=== PATIENT | female | born 1955 | race Caucasian/White ===

== ENCOUNTER → 2018-09-10 07:50 | Outpatient (CLI) | payer BC, SELFPAY ==
[2018-09-10 08:45] LABS: Hematocrit 38.2 % (36-46); Hemoglobin 12.9 g/dL (12.0-16.0); Mean Corpuscular HGB Conc 33.8 % (30-36); Mean Corpuscular Hemoglobin 31.1 PG (26-34); Platelet Count 161 X10^3/uL (150-400); Red Blood Cell Count 4.15 X10^6/uL (4.0-5.2); Red Cell Distribution Width 12.5 % (11.6-14.8); White Blood Cell Count 3.9 X10^3/uL (4.5-11.0)
[2018-09-10 08:57] LABS: Alanine Aminotransferase 19 IU/L (9-52); Albumin 4.7 g/dL (3.5-5.0); Albumin Globulin Ratio 1.4 (1.0-2.8); Alkaline Phosphatase 50 U/L (38-126); Amylase 83 U/L (30-110); Aspartate Aminotransferase 25 IU/L (14-36); BUN Creatinine Ratio 16.7 (6-22); Bilirubin Total 0.5 mg/dL (0.2-1.3); Blood Urea Nitrogen 15 mg/dL (7-17); Calcium 9.5 mg/dL (8.4-10.2); Carbon Dioxide 28 mmol/L (22-32); Chloride 102 mmol/L (98-107); Cholesterol 198 mg/dL (140-199); Estimated Glomerular Filt Rate > 60.0 mL/min (>60); Globulin 3.3 g/dL (1.7-4.1); Glucose 93 mg/dL (80-110); HDL Cholesterol 63 mg/dL (40-60); HEMOLYSIS < 15 (0-50); LDL Cholesterol Calculated 121 mg/dL (<100); Sodium 138 mmol/L (137-145); Triglycerides 72 mg/dL (35-150)
[2018-09-10 09:02] LABS: Potassium 5.5 mmol/L (3.4-5.1)
[2018-09-10 09:47] LABS: Neutrophils Absolute Manual 2340 /uL (3000-5900); RBC Morphology Normal Morphology; Thyroid Stimulating Hormone 2.91 uIU/mL (0.47-4.68); Total Cells Counted 100
== END ==
PROVIDERS: PCP Family Medicine; Visit Provider Family Medicine
DX: R10.9 Unspecified abdominal pain (principal)
CPT/HCPCS: 36415; 80053; 80061; 82150; 83013; 84443; 85025

== ENCOUNTER → 2018-09-12 08:58 | Outpatient (CLI) | payer BC, SELFPAY ==
--- NOTE | 2018-09-12 09:00 | DI.US.S_ITS ---
PROCEDURE: US ABDOMEN COMPLETE INDICATIONS: abd pain bloating TECHNIQUE: Real-time scanning was performed of the abdominal and retroperitoneal organs, with image documentation. COMPARISON: [facility], , CT ABDOMEN/PELVIS WITH CONTRAST, 03/19/2006, 9:33. FINDINGS: Liver: Liver is normal in size and homogeneous in echotexture. Gallbladder: No findings of gallstones or sludge are seen. The gallbladder wall is not thickened, measuring 3 mm or less. No specific pericholecystic fluid is seen. The sonographic Pandya sign is negative. Biliary ducts: Intrahepatic bile ducts are non-dilated. Extrahepatic bile duct caliber measures 2-3 mm. Normal is 6-7 mm or less in diameter, or 10 mm or less post-cholecystectomy. Pancreas: Visualized portions of the pancreas are sonographically normal. Spleen: Spleen is normal in size and homogeneous in echotexture. Kidneys: Kidneys are normal in size and echotexture. Right kidney measures 8.4 cm long; left kidney measures 9.7 cm long. No hydronephrosis or nephrolithiasis. No solid masses. The renal cortex measures within normal limits for thickness. Aorta: Visualized aorta is normal in caliber at less than 3 cm. Iliacs: Proximal common iliac arteries are normal in caliber at less than 2.5 cm. IVC: Intrahepatic inferior vena cava is patent. Miscellaneous: No free abdominal fluid. IMPRESSION: Normal ultrasound. The gallbladder demonstrates a normal sonographic appearance. No biliary dilatation is seen. Dictated by: Ross Machuca M.D. on 09/12/2018 at 10:38 Approved by: Ross Machuca M.D. on 09/12/2018 at 10:39
--- NOTE | 2018-09-12 09:00 | DI.RAD.S_ITS ---
PROCEDURE: FL UPPER GI W AIR INDICATIONS: abd pain bloating COMPARISON: None. FINDINGS: Upper GI series was performed. Scheduled small bowel follow-through was declined by the patient. Reportedly, this was due to difficulties with p.o. intake. 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 No suspicious abdominal calcifications. Visualized solid organ contours appear normal. Bony structures appear unremarkable. Esophagus: Esophageal mucosa is grossly unremarkable on air-contrast views. On single-contrast views, there is decreased esophageal peristalsis. Delayed esophageal clearance. No strictures, extrinsic mass effects, or diverticula. No hiatal hernia or elicited gastroesophageal reflux. Stomach: The stomach is normally distensible, with normal rugal fold thickness. No mucosal masses or ulcers. Pylorus and duodenal bulb appear normal in morphology. Duodenal folds are normal in thickness as well. IMPRESSION: Esophageal dysmotility. Dictated by: Austin Lorenz M.D. on 09/12/2018 at 12:17 Approved by: Austin Lorenz M.D. on 09/12/2018 at 12:20
== END ==
PROVIDERS: PCP Family Medicine; Visit Provider Family Medicine
DX: R10.9 Unspecified abdominal pain (principal); R14.0 Abdominal distension (gaseous); K22.4 Dyskinesia of esophagus
CPT/HCPCS: 74247; 76700

== ENCOUNTER → 2018-09-17 08:52 | Outpatient (CLI) | payer BC, SELFPAY ==
[2018-09-17 09:56] LABS: BUN Creatinine Ratio 11.1 (6-22); Blood Urea Nitrogen 10 mg/dL (7-17); Calcium 9.3 mg/dL (8.4-10.2); Carbon Dioxide 27 mmol/L (22-32); Chloride 103 mmol/L (98-107); Estimated Glomerular Filt Rate > 60.0 mL/min (>60); Glucose 54 mg/dL (80-110); HEMOLYSIS < 15 (0-50); Potassium 4.2 mmol/L (3.4-5.1); Sodium 140 mmol/L (137-145)
== END ==
PROVIDERS: PCP Family Medicine; Visit Provider Family Medicine
DX: E87.5 Hyperkalemia (principal)
CPT/HCPCS: 36415; 80048

== ENCOUNTER → 2018-11-14 08:42 | Outpatient (CLI) | payer BC, SELFPAY ==
[2018-11-14 09:57] LABS: Hematocrit 37.5 % (36-46); Hemoglobin 12.5 g/dL (12.0-16.0); Mean Corpuscular HGB Conc 33.3 % (30-36); Platelet Count 158 X10^3/uL (150-400); Red Blood Cell Count 4.04 X10^6/uL (4.0-5.2); Red Cell Distribution Width 12.7 % (11.6-14.8); White Blood Cell Count 4.7 X10^3/uL (4.5-11.0)
[2018-11-14 10:12] LABS: Neutrophils Absolute Manual 2632 /uL (3000-5900); Total Cells Counted 100
[2018-11-14 10:24] LABS: RBC Morphology Normal Morphology
== END ==
PROVIDERS: PCP Family Medicine; Visit Provider Family Medicine
DX: R63.4 Abnormal weight loss (principal)
CPT/HCPCS: 85025

== ENCOUNTER 2018-12-14 10:14 | Day surgery (SDC) | payer BC, SELFPAY ==
[2018-12-14] VITALS (7 sets, daily range): BP systolic 88–106; BP diastolic 55–67; PULSE 55–63; RESP 12–19; TEMP 35.8–37.1; O2SAT 95–100; BMI 18.6
--- NOTE | 2018-12-14 | PATH_ITS ---
[facility] Accession Number: [id number] . 01 Material submitted: . gastrointestinal site - GASTRIC POLYP . 02 Diagnosis: Stomach, Polyp, Biopsy: Fundic gland polyp. No evidence of Helicobacter on H/E stain. Negative for intestinal metaplasia. Negative for dysplasia and malignancy. [facility]/12/16/2018 . 02 Electronically signed: . Gladys Adams MD, Pathologist NPI- [id number] . 01 Gross description: . GASTRIC POLYP: Received in formalin are 2 fragment(s) of pyle, soft tissue measuring 0.1 x 0.1 x 0.1 cm to 0.2 x 0.1 x 0.1 cm which is entirely submitted and submitted entirely in 1 cassette(s) /DMC /DMC . 02 Pathologist provided ICD-10: R10.9 . 02 CPT . 338405 Performed at: 01 [facility] [address] [facility] [place], [place], [place] [id number] MD Jeff Hopkins MD Phone: [phone] Performed at: 02 [facility] [address] [place], [place] [id number] MD Gladys Adams MD Phone: [phone]
[2018-12-14] MEDS: SODIUM CHLORIDE 0.9% 1,000 ML 70 ML IV (10:43)
--- NOTE | 2018-12-14 10:55 | PM.HP.1 ---
History of Present Illness Date Patient Seen: 12/14/18 Time Patient Seen: 10:55 Chief complaint: [id number] Narrative: Patient is a very pleasant 63-year-old female who presented for further evaluation of acid reflux. Patient was last seen in the office on November 09, 2018. She denies any changes to her medical history or surgical history since that time. She has restarted her omeprazole b.i.d. since that time and has had significant improvement of her symptoms. She has started to gain back a couple of lb. Patient History Medical History GERD (gastroesophageal reflux disease) (Chronic) Chicken pox (Resolved) Measles (Resolved) Mumps (Resolved) Surgical History Anesthesia (Resolved) Status post delivery Status post hernia repair Family History Brother Age: 64 Hypertension High cholesterol Father CVA (cerebral infarction) Psoriasis Mother Age: 91 Pacemaker Heart disease Social History marital status: household members: family Smoking Status: Never smoker alcohol intake: current (1-2 A DAY ) substance use type: does not use Family & Social History Family History Brother Age: 64 Hypertension High cholesterol Father CVA (cerebral infarction) Psoriasis Mother Age: 91 Pacemaker Heart disease Social History: household members family Tobacco & Substance use: Smoking Status Never smoker alcohol intake current Meds Home Medications Medication Instructions Recorded Confirmed Type calcium carbonate 600 mg calcium 600 mg PO DAILY tab 11/10/17 12/14/18 History (1,500 mg) tablet multivitamin tablet 1 tab PO DAILY 11/10/17 11/21/18 History pantoprazole 40 mg tablet,delayed 40 mg PO BID #60 tab 09/28/18 12/14/18 Rx release magnesium 250 mg tablet 250 mg PO DAILY 11/21/18 12/14/18 History Al hyd-Mg tr-alg ac-sod bicarb 4 tab PO DAILY 12/14/18 12/14/18 History [Gaviscon] B.breve-L.acid-L.rham-S.thermo 2 tab PO DAILY 12/14/18 12/14/18 History [Probiotic] Allergies Allergy/AdvReac Type Severity Reaction Status Date / Time No Known Drug Allergies Allergy Verified 12/14/18 10:36 Review of Systems Review of Systems All systems reviewed & are unremarkable except as noted in HPI and below Exam Vital Signs (past 8 hours): - 12/14/18 10:39 Temperature 96.5 F L Pulse Rate 55 L Respiratory Rate 15 Blood Pressure 106/65 Pulse Oximetry 100 Oxygen Delivery Method Room Air Const General: cooperative, healthy appearing, comfortable, well developed and well groomed Resp Effort & Inspection: normal respiratory effort Auscultation: clear to auscultation bilaterally Cardio Rate: regular rate Rhythm: regular rhythm Heart Sounds: S1 normal and S2 normal GI Palpation: soft and no hepatosplenomegaly Auscultation: normal bowel sounds Assessment & Plan Assessment & Plan narrative: 1. Esophageal reflux 2. Early satiety 3. Unintentional weight loss 4. Esophageal dysmotility on esophagram Regarding the procedure(s), the risks and potential complications, benefits, and alternatives (including not doing the procedure) were discussed with the patient. The risks include but are not limited to bleeding, splenic injury, infection, perforation which may require surgical intervention, missed lesions, and adverse reactions to sedative medicines. After a question and answer period, the patient agreed to proceed with the procedure(s) and gives informed consent.
--- NOTE | 2018-12-14 11:07 | SUR.OPER ---
GLASSES TO PACU IN LABELED BAG WITH PATIENT
[2018-12-14] MEDS: MIDAZOLAM 5 MG/5 ML VIAL IV (11:10)
[2018-12-14] MEDS: fentaNYL 250 MCG/5 ML INJ IV (11:11)
--- NOTE | 2018-12-14 11:15 | PM.OP.ENDO ---
Operative Date/Time/Diagnoses Date of procedure: 12/14/18 Time of procedure: 11:04 Procedure Notes Procedure in detail: Surgeon: Ashley Levin DO Procedure: Esophagogastroduodenoscopy with biopsy Preoperative diagnosis: Gastroesophageal reflux, early satiety, unintentional weight loss, esophageal dysmotility Postoperative diagnosis: Gastric polyps otherwise unremarkable esophagus, stomach, and small intestine Medications: Conscious sedation using 3 mg IV of Midazolam and 50 mcg IV of Fentanyl Preanesthesia Assessment An H and P was performed/updated and the Px?s ASA class is 1. The procedure was discussed in detail with the patient. The potential risks and complications including infection, bleeding, missed lesions, perforation, need for surgery in case of perforation, prolonged hospital stay, and were explained. A brief question and answer period was allotted and once all questions were answered, informed consent was obtained. The patient was brought back to the procedure room and placed on standard monitoring. The patient?s vital signs were monitored continuously throughout the entire procedure. Prior to starting, a timeout was performed to confirm the patient?s identity, allergies, medications, and procedure. Procedure in detail The patient was placed in left lateral decubitus position and a bite block was inserted. The tip of the upper endoscope was placed into the mouth and advanced without difficulty under direct visualization into the esophagus. Esophagus: Normal appearing esophagus, negative for stricture or mass Stomach: Few small gastric polyps, biopsied. No evidence of gastritis or hiatal hernia Duodenum: Normal-appearing small duodenum including the duodenal bulb, 1st and 2nd portions. The patient tolerated the procedure well and will be brought back to the recovery area to be discharged once criteria are met. The total physician intraservice time was 10min. Complications There were no complications and estimated blood loss was minimal. Recommendations: Resume previous diet Continue outPx medications Follow up pathology results Office follow up if persistent symptoms An emergency contact number was given to the patient for any complications related to the procedure
== END 2018-12-14 12:21 | disposition home or self-care (01) ==
PROVIDERS: PCP Family Medicine; Visit Provider Student in an Organized Health Care Education/Training Program
PROC: 0DJ08ZZ Inspection of Upper Intestinal Tract, Via Natural or Artificial Opening Endoscopic (ICD-10-PCS; CPT 43235; principal; 2018-12-14 11:30)
DX: K21.9 Gastro-esophageal reflux disease without esophagitis (principal); R68.81 Early satiety; K22.4 Dyskinesia of esophagus; R63.4 Abnormal weight loss; K31.7 Polyp of stomach and duodenum
CPT/HCPCS: 43239; J2250; J3010

== ENCOUNTER 2019-11-29 08:23 | Emergency (ER) | payer BC, SELFPAY ==
[2019-11-29 08:25] VITALS: BP 119/70; PULSE 65; RESP 16; TEMP 36.9; O2SAT 100
--- NOTE | 2019-11-29 09:14 | ED_ITS ---
HPI - Headache General Chief Complaint: Headache Stated Complaint: Dizziness,Headaches, nausea on and off Time Seen by Provider: 11/29/19 08:43 Source: patient Mode of arrival: Ambulatory Limitations: no limitations History of Present Illness HPI Narrative: 64-year-old female here for evaluation of approximately 10 days off and on headaches associated with nausea and also a dizziness sensation. She states that all of her symptoms started approximately 10 days ago. It did start with a headache and nausea. Was not a sudden onset. Lasted several hours. She took some Tylenol which seemed to help her symptoms. The next couple days she had no symptoms. The headache the nausea returned again after that. Again she took Tylenol which did improve the symptoms. She then went another couple days without any symptoms and now today and for the past couple days she has described a lightheadedness sensation. Is not a room spinning sensation. She thinks she can overcome this sensation by doing other tasks. She has not fallen. Has a very slight headache today but she states that the lightheadedness is not associated with the headache. No chest pain or palpitations. Has not tried anything except for the Tylenol for any of these symptoms. Has never had anything like this in the past. Does have tinnitus however she states that it is not any worse than normal. No sinus congestion or sore throat. No vision changes. No new numbness or tingling in her upper extremities. She states that the lightheadedness is a sensation that she feels like she wants to fall to her left. Related Data Home Medications Medication Instructions Recorded Confirmed calcium carbonate 600 mg calcium 600 mg PO DAILY tab 11/10/17 11/29/19 (1,500 mg) tablet multivitamin 1 tab PO DAILY 11/10/17 11/29/19 Allergies Allergy/AdvReac Type Severity Reaction Status Date / Time No Known Drug Allergies Allergy Verified 11/29/19 08:44 Review of Systems Constitutional Constitutional: Denies chills, Denies fatigue, Denies fever(s), Denies frequent falls and Reports headache(s) Eyes Eyes: Denies blurry vision, Denies change in vision and Denies diplopia ENT Ears, Nose, Mouth, and Throat: Denies vertigo, Denies dizziness, Reports headache(s), Denies hearing loss, Denies nasal congestion, Reports d isequilibrium, Denies sinus pain and Denies sinus pressure Cardiovascular Cardiovascular: Denies chest pain, Denies rapid heart rate, Denies irregular heart rhythm, Reports lightheadedness and Denies dyspnea Respiratory Respiratory: Denies cough and Denies dyspnea Gastrointestinal Gastrointestinal: Denies abdominal pain, Denies change in bowel habits, Denies diarrhea and Reports nausea Genitourinary Genitourinary: Denies dysuria Genitourinary: Denies dysuria Musculoskeletal Musculoskeletal: Denies abnormal gait, Denies arthralgias, Denies back pain, Denies myalgias, Denies numbness and Denies tingling Integumentary/Breasts Skin/Breast: Denies lesions and Denies rash Neurologic Neurologic: Denies abnormal speech, Denies abnormal gait, Denies behavioral changes, Denies confusion, Denies vertigo, Denies dizziness, Denies frequent falls, Reports headache(s), Denies lack of coordination, Denies localized weakness, Denies numbness, Denies tingling and Reports disequilibrium Psychiatric Psychiatric: Denies anxiety, Denies behavioral changes and Denies confusion Endocrine Endocrine: Denies fatigue Hematologic/Lymphatic Hematologic/Lymphatic: Denies easy bleeding and Denies easy bruising Allergic/Immunologic Allergic/Immunologic: Denies urticaria Patient History Medical History Chicken pox (Resolved) GERD (gastroesophageal reflux disease) (Chronic) Measles (Resolved) Mumps (Resolved) Surgical History Anesthesia (Resolved) Status post delivery Status post hernia repair Family History Brother Age: 65 Hypertension High cholesterol Father CVA (cerebral infarction) Psoriasis Mother Age: 92 Pacemaker Heart disease Social History marital status: household members: family Smoking Status: Never smoker alcohol intake: current (1-2 A DAY ) substance use type: does not use Smoking Status: Never smoker alcohol intake frequency: 0-2 drinks per day Substance Use Type: does not use Exam Initial Vital Signs Initial Vital Signs: Vital Signs Temperature 98.5 F 11/29/19 08:25 Pulse Rate 65 11/29/19 08:25 Respiratory Rate 16 11/29/19 08:25 Blood Pressure 119/70 11/29/19 08:25 Pulse Oximetry 100 11/29/19 08:25 Const General: cooperative, healthy appearing, comfortable, well developed, well groomed and No acute distress Limitations: mental status not altered HENAL Head: normal to inspection and normocephalic Eyes Eyelids: eyelids normal Pupils: PERRL EOM: EOM intact bilaterally and No nystagmus Resp Effort & Inspection: normal respiratory effort Auscultation: clear to auscultation bilaterally Cardio Rate: regular rate Rhythm: regular rhythm GI Inspection: non-distended Palpation: soft, No firm and No tender Back/Spine/Pelvis Back: normal to inspection Skin Lesions: no lesions Rashes: no rashes Neuro General: patient alert, patient awake, patient oriented x3, tone normal, moves all extremities, normal light touch, pain and propioception, no meningeal signs, no focal motor deficits and not confused Cranial Nerves: CN's II-XI intact bilaterally, PERRL, EOM intact bilaterally, facial strength normal, tongue midline, hearing normal and No nystagmus Cognition: normal cognition Speech: speech normal Motor: muscle tone normal throughout Sensory Exam: no sensory deficits noted Coordination: [id number] test normal Extrem General: normal to inspection and capillary refill normal Psych Appearance: grossly normal and well kempt Scores GCS [place] coma scale eye opening: Spontaneous Marcello coma scale verbal response: Orientated [place] coma scale motor response: Obey commands Marcello coma scale total score: 15 NIH Stroke Scale Level of Conciousness: Alert, keenly responsive Ask month/age: Answers both questions correctly. Open/close eyes, close hand: Performs both tasks correctly Best gaze horizontal: Normal Visual choudhury: No visual loss Facial palsy: Normal symetrical movement Left arm drift: No drift for full 10 sec Right arm drift: No drift for full 10 sec Left leg drift: No drift for full 10 sec Right leg drift: No drift for full 10 sec Limb ataxia: Absent Sensory on face/arms/legs: Normal, no sensory loss Best language: No aphasia, normal Dysarthria: Normal Extinction or inattention: No abnormality Total NIH Stroke scale score: 0 Course Orders Ordered: ED Orders 11/29/19 08:39 Basic Metabolic Panel Stat Complete Blood Count AUTO DIFF Stat Thyroid Stimulating Hormone Stat 11/29/19 09:16 CT head/brain wo con Stat EKG-12 Lead Stat Vital Signs Vital signs: Vital Signs - 8 hr 11/29/19 08:25 11/29/19 09:54 11/29/19 10:57 Temperature 98.5 F 98.6 F Pulse Rate 65 62 60 Respiratory Rate 16 20 16 Blood Pressure 119/70 124/71 Blood Pressure [Right Arm] 108/59 L Pulse Oximetry 100 100 100 MDM - Headache Lab Data Attestation: I reviewed the patient's lab results. Result diagrams: 11/29/19 08:39 11/29/19 08:39 Labs: Lab Results 11/29/19 11/29/19 11/29/19 Range/Units 08:39 08:39 08:39 WBC 4.6 (4.5-11.0) X10^3/uL RBC 3.88 L (4.0-5.2) X10^6/uL Hgb 12.5 (12.0-16.0) g/dL Hct 36.6 (36-46) % MCV 94.5 (80-100) fL MCH 32.2 (26-34) PG MCHC 34.1 (30-36) % RDW 12.6 (11.6-14.8) % Plt Count 162 (150-400) X10^3/uL Neut % (Auto) 57.4 (50-75) % Lymph % (Auto) 30.3 (25-40) % Stearns % (Auto) 9.2 (3-14) % Eos % (Auto) 1.7 L (2-4) % Baso % (Auto) 1.4 (0-2) % Neut # (Auto) 2600 (3940-6943) /uL Lymph # (Auto) 1400 (3604-2502) /uL Stearns # (Auto) 400 (0-900) /uL Eos # (Auto) 100 (0-450) /uL Baso # (Auto) 100 (0-100) /uL Sodium 138 (137-145) mmol/L Potassium 4.4 (3.4-5.1) mmol/L Chloride 103 (98-107) mmol/L Carbon Dioxide 25 (22-32) mmol/L BUN 12 (7-17) mg/dL Creatinine 0.83 (0.52-1.04) mg/dL Estimated GFR > 60.0 (>60) mL/min BUN/Creatinine Ratio 14.5 (6-22) Glucose 78 L (80-110) mg/dL Calcium 9.3 (8.4-10.2) mg/dL TSH 2.40 (0.47-4.68) uIU/mL Imaging Data CT scan - head: Radiologist's Impression: [address] [address] [address] Scan Report Signed Patient: Silvano Duran AMR#: [id number] : 7Acct:[id number] Age/Sex: 64 / FDate of Service: 11/29/19 Loc: ED Accession Number: [id number] Procedure: CT head/brain wo con Ordering Provider: Vinay Kent D.O. PROCEDURE: CT HEAD/BRAIN WO CON INDICATIONS: Lightheadedness, and headache TECHNIQUE: Noncontrast 4.5 mm thick angled axial sections acquired from the foramen magnum to the vertex, with coronal and sagittal reformats. For radiation dose reduction, the following was used: automated exposure control, adjustment of mA and/or kV according to patient size. COMPARISON: None. FINDINGS: Image quality: Excellent. CSF spaces: Basal cisterns are patent. No extra-axial fluid collections. The ventricles are symmetric in size and shape. Brain: No intracranial bleeds or masses. There is cerebral volume loss for age, with resultant ventricular and sulcal prominence. There are periventricular and deep white matter chronic small vessel ischemic changes. There is intracranial internal carotid artery atherosclerosis. Skull and face: Calvarium and visualized facial bones appear intact, without suspicious lesions. Sinuses: Visualized sinuses and mastoids are clear. IMPRESSION: No acute intracranial disease process. Dictated by: Melissa Olvera MD, PhD on 11/29/2019 at 9:41 Approved by: Melissa Olvera MD, PhD on 11/29/2019 at 9:43 ECG Data Attestation: I personally reviewed and interpreted this ECG as follows: Prior ECG tracings: not available for review Interpretation: Sinus rhythm Ventricular rate is 60 Normal axis Normal QRS Normal QTC No ST T wave changes MDM Narrative Medical decision making narrative: Patient has a normal neurologic exam. Head CT is unremarkable. EKG is unremarkable. Unsure the exact etiology of her symptoms however I have low suspicion for cardiac arrhythmia. Her labs are unremarkable. Low suspicion for CVA or TIA. Patient describes a lightheadedness/unsteadiness not vertigo. We did discuss potential inner ear issue. Did discuss the use of antihistamines over the next couple days to see if this does not improve her symptoms. She is going to contact her primary provider for follow-up. I feel the patient can be safely discharged home without further workup here in the ER. She was given strict return precautions. She expressed understanding and agreement plan. Discharge Plan Departure Patient Disposition: Home Clinical Impression: Disequilibrium, Nausea Headache Qualifiers: Headache type: unspecified Headache chronicity pattern: unspecified pattern Intractability: not intractable Qualified Code(s): R51 - Headache Discharge Date/Time: 11/29/19 10:58 Instructions: DI for Dizziness-Nonvertigo Activity Restrictions/Additional Instructions: I recommend that you start taking an antihistamine such as Claritin or Tresa or Zyrtec. You can purchase these [id number]. Generic versions are appropriate. Recommend you contact your primary provider for follow-up. Return to the emergency department for any of the symptoms that we discussed. Prescriptions: No Action multivitamin [Daily Multi-Vitamin] tablet 1 tab PO DAILY RF: 0 calcium carbonate [Calcium 600] 600 mg calcium (1,500 mg) tablet 600 mg PO DAILY RF: 0 Referrals: Popeye Puckett MD [Primary Care Provider] -
[2019-11-29 09:37] LABS: Add Manual Diff / Slide Review NO; Basophils Absolute Auto 100 /uL (0-100); Basophils Percent Auto 1.4 % (0-2); Eosinophils Absolute Auto 100 /uL (0-450); Eosinophils Percent Auto 1.7 % (2-4); Hematocrit 36.6 % (36-46); Hemoglobin 12.5 g/dL (12.0-16.0); Lymphocytes Absolute Auto 1400 /uL (1100-4500); Lymphocytes Percent Auto 30.3 % (25-40); Mean Corpuscular HGB Conc 34.1 % (30-36); Mean Corpuscular Hemoglobin 32.2 PG (26-34); Mean Corpuscular Volume 94.5 fL (80-100); Monocytes Absolute Auto 400 /uL (0-900); Monocytes Percent Auto 9.2 % (3-14); Neutrophils Absolute Auto 2600 /uL (1500-7000); Neutrophils Percent Auto 57.4 % (50-75); Platelet Count 162 X10^3/uL (150-400); Red Blood Cell Count 3.88 X10^6/uL (4.0-5.2); Red Cell Distribution Width 12.6 % (11.6-14.8); White Blood Cell Count 4.6 X10^3/uL (4.5-11.0)
[2019-11-29 09:41] LABS: BUN Creatinine Ratio 14.5 (6-22); Blood Urea Nitrogen 12 mg/dL (7-17); Calcium 9.3 mg/dL (8.4-10.2); Carbon Dioxide 25 mmol/L (22-32); Chloride 103 mmol/L (98-107); Estimated Glomerular Filt Rate > 60.0 mL/min (>60); Glucose 78 mg/dL (80-110); HEMOLYSIS 33 (0-50); Potassium 4.4 mmol/L (3.4-5.1); Sodium 138 mmol/L (137-145)
[2019-11-29 09:54] VITALS: BP 108/59; PULSE 62; RESP 20; O2SAT 100
[2019-11-29 10:57] VITALS: BP 124/71; PULSE 60; RESP 16; TEMP 37; O2SAT 100
== END 2019-11-29 10:58 | disposition home or self-care (01) ==
PROVIDERS: Emergency Provider Emergency Medicine; PCP Family Medicine
DX: R42 Dizziness and giddiness (principal); R11.0 Nausea; R51 Headache
CPT/HCPCS: 36415; 70450; 80048; 84443; 85025; 93005; 99284

== ENCOUNTER → 2021-03-05 07:48 | Outpatient (CLI) | payer BC, SELFPAY ==
[2021-03-05 09:03] LABS: Alanine Aminotransferase 21 IU/L (<35); Albumin 4.5 g/dL (3.5-5.0); Albumin Globulin Ratio 1.5 (1.0-2.8); Alkaline Phosphatase 52 U/L (38-126); Aspartate Aminotransferase 29 IU/L (14-36); BUN Creatinine Ratio 13.8 (6-22); Bilirubin Total 0.5 mg/dL (0.2-1.3); Blood Urea Nitrogen 12 mg/dL (7-17); Calcium 9.5 mg/dL (8.4-10.2); Carbon Dioxide 29 mmol/L (22-32); Chloride 105 mmol/L (98-107); Cholesterol 202 mg/dL (140-199); Estimated Glomerular Filt Rate > 60.0 mL/min (>60); Globulin 3.1 g/dL (1.7-4.1); Glucose 99 mg/dL (80-110); HDL Cholesterol 68 mg/dL (40-60); HEMOLYSIS < 15 (0-50); LDL Cholesterol Calculated 113 mg/dL (<100); Potassium 5.3 mmol/L (3.4-5.1); Sodium 138 mmol/L (137-145); Total Protein 7.6 g/dL (6.3-8.2); Triglycerides 103 mg/dL (35-150)
[2021-03-05 09:41] LABS: TSH w/ Reflex to FT4 2.04 uIU/mL (0.47-4.68)
[2021-03-05 09:51] LABS: Vitamin B12 393 pg/mL (239-931)
== END ==
PROVIDERS: PCP Family Medicine; Referring Provider Family Medicine; Visit Provider Family Medicine
DX: G62.9 Polyneuropathy, unspecified (principal)
CPT/HCPCS: 36415; 80053; 80061; 82607; 84443

== ENCOUNTER → 2022-01-01 10:25 | Outpatient (CLI) | payer MEDICARE, SELFPAY ==
--- NOTE | 2022-01-01 10:27 | DI.RAD.S_ITS ---
PROCEDURE: XR HAND LT MIN 3V INDICATIONS: hand pain TECHNIQUE: 3 views of the hand(s) acquired. COMPARISON: [facility], CR, XR HAND RT MIN 3V, 01/01/2022, 11:20. FINDINGS: Bones: No fractures or dislocations. Carpal bones are normally aligned. No suspicious bony lesions. There is interphalangeal joint space narrowing and osteophytosis most pronounced at the PIP joints. This is uxbu-cy-oevklmge severity. Soft tissues: No suspicious soft tissue calcifications. IMPRESSION: Interphalangeal joint space narrowing osteophytosis most pronounced at the PIP joints. Szkf-lo-xmuocwmv severity. Dictated by: Tha Mota M.D. on 01/01/2022 at 11:35 Approved by: Tha Mota M.D. on 01/01/2022 at 11:36
--- NOTE | 2022-01-01 10:27 | DI.RAD.S_ITS ---
PROCEDURE: XR HAND RT MIN 3V INDICATIONS: hand pain TECHNIQUE: 3 views of the hand(s) acquired. COMPARISON: [facility], CR, XR HAND LT MIN 3V, 01/01/2022, 11:20. FINDINGS: Bones: No fractures or dislocations. Carpal bones are normally aligned. No suspicious bony lesions. There is interphalangeal joint space narrowing and osteophytosis most pronounced at the PIP joints. Mild deviation at the 3rd digit. Soft tissues: No suspicious soft tissue calcifications. There appears to be mild swelling at the PIP joints. IMPRESSION: Interphalangeal joint space narrowing and osteophytosis most pronounced at the PIP joints. Moderate severity. Dictated by: Tha Mota M.D. on 01/01/2022 at 11:27 Approved by: Tha Mota M.D. on 01/01/2022 at 11:35
[2022-01-01 11:21] LABS: C-Reactive Protein Quant < 0.5 mg/dL (<1.0)
[2022-01-01 11:31] LABS: Erythrocyte Sedimentation Rate 9 MM/HR (0-20)
[2022-01-01 11:38] LABS: Rheumatoid Factor < 8.6 IU/mL (<12.0)
[2022-01-05 22:38] LABS: CCP Antibodies IgG/IgA 7 units (0-19)
== END ==
PROVIDERS: PCP Family Medicine; Referring Provider Family Medicine; Visit Provider Family Medicine
DX: M25.541 Pain in joints of right hand (principal); M25.542 Pain in joints of left hand; M25.742 Osteophyte, left hand; M25.741 Osteophyte, right hand
CPT/HCPCS: 36415; 73130; 85651; 86140; 86200; 86430

== ENCOUNTER → 2022-04-15 11:45 | Outpatient (CLI) | payer MEDICARE, SELFPAY ==
[2022-04-15 13:33] LABS: COVID19 -Nasal RAPID Negative (Negative)
== END ==
PROVIDERS: PCP Family Medicine; Visit Provider Surgery
DX: Z01.812 Encounter for preprocedural laboratory examination (principal); Z20.822 Contact with and (suspected) exposure to COVID-19
CPT/HCPCS: 87635; C9803

== ENCOUNTER 2022-04-16 08:46 | Day surgery (SDC) | payer MEDICARE, SELFPAY ==
[2022-04-16 09:06] VITALS: BP 125/75; PULSE 80; RESP 16; TEMP 36.8; O2SAT 100; BMI 18.6
[2022-04-16] MEDS: LACTATED RINGERS 1,000 ML 42 ML IV (09:17)
--- NOTE | 2022-04-16 10:05 | PM.HP.1 ---
History of Present Illness History of Present Illness Date Patient Seen: 04/16/22 Time Patient Seen: 10:05 Chief complaint: Colonoscopy Narrative: Silvano is a 66-year-old woman is here for colonoscopy. She had a colonoscopy about 10 years ago with no polyps. She has no known family history of colon cancer. Patient History Medical History (Updated 04/16/22 @ 10:05 by Sami Huerta MD) Chicken pox GERD (gastroesophageal reflux disease) Measles Mumps Surgical History Anesthesia Status post delivery Status post hernia repair Family & Social History Family History (Updated 12/18/19 @ 10:49 by Popeye Puckett MD) Brother Age: 67 Hypertension High cholesterol Father Psoriasis Mother Age: 94 Pacemaker Heart disease Social History: household members family Tobacco & Substance use: Smoking Status Never smoker alcohol intake current alcohol intake frequency 0-2 drinks per day Substance Use Type does not use Meds Home Medications and Allergies Home Medications Medication Instructions Recorded Confirmed Type calcium carbonate 600 mg calcium 600 mg PO DAILY 11/10/17 04/16/22 History (1,500 mg) tablet (Calcium) pantoprazole 40 mg tablet,delayed 40 mg PO BID #60 tabs 02/25/21 04/16/22 Rx release nortriptyline See Rx Instructions .Route .COMPLEX 04/16/22 04/16/22 History Allergies Allergy/AdvReac Type Severity Reaction Status Date / Time No Known Drug Allergies Allergy Verified 04/16/22 09:02 Exam Vital Signs (past 8 hours): - 04/16/22 09:06 Temperature 98.3 F Pulse Rate 80 Respiratory Rate 16 Blood Pressure 125/75 Pulse Oximetry 100 Oxygen Delivery Method Room Air Oxygen Delivery Method Room Air Const General: healthy appearing Assessment & Plan Assessment and plan (1) Colon cancer screening: Status: Acute Plan We reviewed the risks and benefits of colonoscopy and she would like to proceed. Time Spent With Patient Critical Care time: I spent a total of [] minutes of critical care time on this patient's care today; this time is exclusive of procedural time.
--- NOTE | 2022-04-16 10:24 | SUR.OPER ---
ABDOMINAL PRESSURE REQUIRED
--- NOTE | 2022-04-16 10:29 | SUR.OPER ---
CECUM AT 1030
[2022-04-16 10:51] VITALS: BP 100/64; PULSE 70; RESP 16; TEMP 36.3; O2SAT 97
--- NOTE | 2022-04-16 10:54 | PM.OP.COLON ---
Operative Date/Time/Diagnoses Date of procedure: 04/16/22 Time of procedure: 10:54 Pre-op diagnosis: Colon cancer screening Post-op diagnosis: same Procedure & Clinicians Study performed: Colonoscopy Same procedure as scheduled: Yes Surgeon: Sami Huerta Procedure Notes Procedure in detail: Surgeon: Sami Huerta MD Anesthesia: MAC by Dr. Mohr Procedure: The patient was brought to the endoscopy suite, placed in left lateral decubitus position. The patient was connected to monitoring devices. A time-out was performed. Sedation was administered. Once the patient was adequately sedated, a digital rectal exam was performed and was normal. The scope was then inserted and advanced to the cecum where the appendiceal orifice was identified and photographed. The scope was then slowly withdrawn over greater than 6 minutes. The mucosa was thoroughly inspected. No abnormalities were noted. The scope was retroflexed in the rectum. No abnormalities were noted. The scope was straightened and removed. The patient was awakened and brought to recovery. Scope withdrawal time: 12 minutes EBL: 30 minutes Findings: Normal colon Post-procedure Recommendations: Colonoscopy in 10 years Disposition: PACU
[2022-04-16 11:00] VITALS: BP 96/61; PULSE 75; RESP 16; O2SAT 98
[2022-04-16 11:11] VITALS: BP 120/70; PULSE 74; RESP 16; TEMP 36.8; O2SAT 98
== END 2022-04-16 11:18 | disposition home or self-care (01) ==
PROVIDERS: PCP Family Medicine; Referring Provider Surgery; Visit Provider Surgery
PROC: 0DJD8ZZ Inspection of Lower Intestinal Tract, Via Natural or Artificial Opening Endoscopic (ICD-10-PCS; CPT 45378; principal; 2022-04-16 10:00)
DX: Z12.11 Encounter for screening for malignant neoplasm of colon (principal)
CPT/HCPCS: G0121; J2704; J3010

== ENCOUNTER → 2023-01-05 09:52 | Outpatient (CLI) | payer MEDICARE, SELFPAY ==
[2023-01-05 11:35] LABS: Add Manual Diff / Slide Review NO; Basophils Absolute Auto 0 /uL (0-100); Basophils Percent Auto 1.1 % (0-2); Eosinophils Absolute Auto 100 /uL (0-450); Eosinophils Percent Auto 1.5 % (2-4); Hemoglobin 12.1 g/dL (12.0-16.0); Lymphocytes Absolute Auto 1000 /uL (1100-4500); Lymphocytes Percent Auto 22.8 % (25-40); Mean Corpuscular HGB Conc 33.7 % (30-36); Mean Corpuscular Hemoglobin 31.2 PG (26-34); Mean Corpuscular Volume 92.6 fL (80-100); Monocytes Absolute Auto 500 /uL (0-900); Monocytes Percent Auto 12.1 % (3-14); Neutrophils Absolute Auto 2600 /uL (1500-7000); Neutrophils Percent Auto 62.5 % (50-75); Platelet Count 166 X10^3/uL (150-400); Red Blood Cell Count 3.89 X10^6/uL (4.0-5.2); Red Cell Distribution Width 13.5 % (11.6-14.8); White Blood Cell Count 4.2 X10^3/uL (4.5-11.0)
[2023-01-05 11:51] LABS: Alanine Aminotransferase 27 IU/L (<35); Albumin 4.3 g/dL (3.5-5.0); Albumin Globulin Ratio 1.3 (1.0-2.8); Alkaline Phosphatase 52 U/L (38-126); Aspartate Aminotransferase 36 IU/L (14-36); Bilirubin Total 0.5 mg/dL (0.2-1.3); Blood Urea Nitrogen 15 mg/dL (7-17); C-Reactive Protein Quant < 0.5 mg/dL (<1.0); Carbon Dioxide 29 mmol/L (22-32); Chloride 101 mmol/L (98-107); Estimated Glomerular Filt Rate > 60 mL/min (>60); Globulin 3.2 g/dL (1.7-4.1); Glucose 83 mg/dL (80-110); HEMOLYSIS < 15 (0-50); Potassium 4.6 mmol/L (3.4-5.1); Sodium 136 mmol/L (137-145); Total Protein 7.5 g/dL (6.3-8.2)
[2023-01-05 11:58] LABS: HEMOLYSIS < 15 (0-50); Iron 98 ug/dL (37-170)
[2023-01-05 12:11] LABS: Percent Iron Saturation 28 % (15-50); Total Iron Binding Capacity 346 ug/dL (265-497); Transferrin 269 mg/dL (206-381)
[2023-01-05 12:37] LABS: Erythrocyte Sedimentation Rate 10 MM/HR (0-20)
[2023-01-05 12:38] LABS: Vitamin B12 570 pg/mL (239-931)
== END ==
PROVIDERS: PCP Family Medicine; Referring Provider Physician Assistant; Visit Provider Physician Assistant
DX: K21.9 Gastro-esophageal reflux disease without esophagitis (principal); M19.041 Primary osteoarthritis, right hand; M19.042 Primary osteoarthritis, left hand; R63.4 Abnormal weight loss
CPT/HCPCS: 36415; 80053; 82607; 83540; 83550; 85025; 85651; 86140

== ENCOUNTER → 2023-02-08 09:44 | Outpatient (CLI) | payer MEDICARE, SELFPAY ==
--- NOTE | 2023-02-08 09:44 | DI.RAD.S_ITS ---
Bone Density Report Name: JHONY CAIN Age: 67 Sex: Female Ethnicity: White Date of : 1955 Indication: postmenopausal; screening for osteoporosis; Referring Provider: KIRSTEN TRINIDAD Study: Bone densitometry was performed. Exam Date: February 08, 2023 Accession number: [id number] Bone Density: Region BMD T-score Z-score Classification AP Spine(L1-L4) 0.660 -3.5 -1.7 Osteoporosis Femoral Neck (Left) 0.584 -2.4 -0.8 Osteopenia Total Hip (Left) 0.590 -2.9 -1.6 Osteoporosis Femoral Neck (Right) 0.515 -3.0 -1.4 Osteoporosis Total Hip (Right) 0.573 -3.0 -1.7 Osteoporosis Total Hip Mean 0.582 -3.0 -1.7 Osteoporosis World Health Organization criteria for BMD impression classify patients as: Normal (T-score at or above -1.0), Osteopenia (T-score between -1.0 and -2.5), or Osteoporosis (T-score at or below -2.5). 10-year Fracture Risk: FRAX not reported because: Some T-score for Spine Total or Hip Total or Femoral Neck at or below -2.5 Impression: The patient has osteoporosis, based on the Total Spine T-score. Discussion: INCREASED RISK OF FRACTURE. BONE DENSITY IS UNDESIRABLY LOW AT ONE OR MORE SKELETAL SITES, CONSISTENT WITH POSTMENOPAUSAL OSTEOPOROSIS. This patient's lowest T-score meets the World Health Organization's (WHO) criteria for osteoporosis at one or more sites (T-score -2.5 or below). In untreated patients, the risk of osteoporotic fracture increases approximately two-fold for each 1.0 SD decrease in T-score. Low bone density is not the only risk factor for fracture; also consider factors such as patient's age, frailty or poor health, risk of falling, risk of injury, previous osteoporotic fracture, family history of osteoporosis, cigarette smoking, low body weight, etc. Not everyone with low bone mineral density has osteoporosis; osteomalacia and other metabolic bone disorders should also be considered. Patients who have osteoporosis should be evaluated for specific diseases and conditions (secondary causes) that may cause or contribute to bone loss. The [place] [employer]ocrin[employer] (AACE) and National Osteoporosis Foundation (NOF) recommend pharmacologic intervention for all postmenopausal women whose T-score is in this range. The patient should follow a healthful lifestyle (good nutrition with adequate calcium and vitamin D, and appropriate weight-bearing exercise). Follow-Up: Consider a repeat BMD and Vertebral Fracture Assessment (VFA) exam in 2 years or sooner if medically necessary, to reassess this patient's status. Reported by: ALISSON OLIVA M.D on 02/08/2023 10:23:00 AM.
== END ==
PROVIDERS: PCP Family Medicine; Referring Provider Physician Assistant; Visit Provider Physician Assistant
DX: Z13.820 Encounter for screening for osteoporosis (principal); M81.0 Age-related osteoporosis without current pathological fracture; Z78.0 Asymptomatic menopausal state
CPT/HCPCS: 77080

== ENCOUNTER → 2023-02-26 08:54 | Outpatient (CLI) | payer MEDICARE, SELFPAY ==
--- NOTE | 2023-02-26 08:56 | DI.CT.S_ITS ---
PROCEDURE: CT ABDOMEN PELVIS W CON INDICATIONS: abdominal pain and bloating, heartburn TECHNIQUE: After the administration of oral and intravenous contrast, axial sections were acquired from the lung bases to the pubic symphysis. Coronal and sagittal reformats were performed. For radiation dose reduction, the following was used: automated exposure control, adjustment of mA and/or kV according to patient size. COMPARISON:None. FINDINGS: Image quality: Excellent. Lung bases: Unremarkable. Heart: No significant findings. ABDOMEN: Liver: Unremarkable. Gallbladder: Unremarkable. Biliary ducts: Unremarkable. Pancreas: Unremarkable. Spleen: Unremarkable. Adrenal Glands: Unremarkable. Kidneys and Ureters: Unremarkable. Stomach and Bowel: Stomach, small bowel loops, and colon are unremarkable. Peritoneum: No abnormal intraperitoneal fluid. No free air. Ventral Wall: No hernia. Abdominal Nodes: No retroperitoneal or mesenteric adenopathy by size criteria. Vessels: Aorta and inferior vena cava are normal in size. Dilated adnexal vasculature. PELVIS: Pelvic Organs: Unremarkable. Bladder: Unremarkable. Pelvic Nodes: No enlarged lymph nodes. Miscellaneous: No inguinal hernias are seen. Bones: Unremarkable. IMPRESSION: No findings to explain the patient's abdominal pain or weight loss. Consider screening colonoscopy if not performed recently. Dilated pelvic adnexal vasculature, which can be seen in the setting of pelvic congestion syndrome. Dictated by: Vini Pendleton M.D. on 02/26/2023 at 11:10 Approved by: Vini Pendleton M.D. on 02/26/2023 at 11:20
[2023-02-26 09:21] LABS: Blood Urea Nitrogen 18 mg/dL (7-17); Estimated Glomerular Filt Rate 58 mL/min (>60)
== END ==
PROVIDERS: PCP Family Medicine; Referring Provider Family Medicine; Visit Provider Family Medicine
DX: R10.9 Unspecified abdominal pain; R14.0 Abdominal distension (gaseous); K21.9 Gastro-esophageal reflux disease without esophagitis; H53.72 Impaired contrast sensitivity
CPT/HCPCS: 36415; 74177; 82565; 84520; Q9967

== ENCOUNTER → 2023-08-05 09:44 | Outpatient (CLI) | payer MEDICARE, SELFPAY ==
[2023-08-05 10:55] LABS: BUN Creatinine Ratio 18.4 (6-22); Blood Urea Nitrogen 19 mg/dL (7-17); Carbon Dioxide 25 mmol/L (22-32); Chloride 103 mmol/L (98-107); Estimated Glomerular Filt Rate 60 mL/min (>60); Glucose 76 mg/dL (80-110); HEMOLYSIS < 15 (0-50); Potassium 4.4 mmol/L (3.4-5.1); Sodium 138 mmol/L (137-145)
[2023-08-05 11:29] LABS: Appearance Urine UA CLEAR; Bilirubin Urine UA NEGATIVE (NEGATIVE); Color Urine UA YELLOW; Glucose Urine UA NEGATIVE (Negative); Ketones Urine UA TRACE (NEGATIVE); Leukocyte Esterase Urine UA NEGATIVE (NEGATIVE); Nitrite Urine UA NEGATIVE (Negative); Occult Blood Urine UA NEGATIVE (Negative); Protein Urine UA NEGATIVE (Negative); Specific Gravity Urine UA 1.025 (1.000-1.035); Urobilinogen Urine UA 0.2 E.U./dL (0.2)
[2023-08-05 12:02] LABS: pH Urine UA 5.5 (4.5-8.0)
[2023-08-05 12:06] LABS: Bacteria Urine None Seen; Culture Indicated Urine Cult Not Indicated; Mucus Urine 1+ (Negative); RBC Urine 0-1/HPF (0-5/HPF); Squamous Epithelial Cell Urine None Seen (0-5/HPF); Urine Volume 10mL (spun); WBC Urine 0-1/HPF (0-5/HPF)
== END ==
PROVIDERS: PCP Family Medicine; Referring Provider Family Medicine; Visit Provider Family Medicine
DX: N28.9 Disorder of kidney and ureter, unspecified (principal); R63.4 Abnormal weight loss; K21.9 Gastro-esophageal reflux disease without esophagitis
CPT/HCPCS: 36415; 80048; 81001

== ENCOUNTER → 2024-03-14 10:13 | Outpatient (CLI) | payer MEDICARE, SELFPAY ==
[2024-03-14 12:01] LABS: Add Manual Diff / Slide Review NO; Basophils Absolute Auto 100 /uL (0-100); Basophils Percent Auto 1.4 % (0-2); Eosinophils Absolute Auto 200 /uL (0-450); Eosinophils Percent Auto 2.5 % (2-4); Hemoglobin 12.2 g/dL (12.0-16.0); Lymphocytes Absolute Auto 1700 /uL (1100-4500); Mean Corpuscular HGB Conc 33.7 % (30-36); Mean Corpuscular Hemoglobin 31.6 PG (26-34); Mean Corpuscular Volume 93.5 fL (80-100); Monocytes Absolute Auto 600 /uL (0-900); Monocytes Percent Auto 10.1 % (3-14); Neutrophils Absolute Auto 3600 /uL (1500-7000); Platelet Count 208 X10^3/uL (150-400); Red Blood Cell Count 3.85 X10^6/uL (4.0-5.2); Red Cell Distribution Width 12.8 % (11.6-14.8); White Blood Cell Count 6.1 X10^3/uL (4.5-11.0)
[2024-03-14 12:26] LABS: Alanine Aminotransferase 15 IU/L (<35); Albumin 4.3 g/dL (3.5-5.0); Albumin Globulin Ratio 1.5 (1.0-2.8); Alkaline Phosphatase 59 U/L (38-126); Aspartate Aminotransferase 24 IU/L (14-36); BUN Creatinine Ratio 20.2 (6-22); Bilirubin Total 0.5 mg/dL (0.2-1.3); Blood Urea Nitrogen 18 mg/dL (7-17); Calcium 9.7 mg/dL (8.4-10.2); Carbon Dioxide 27 mmol/L (22-32); Chloride 102 mmol/L (98-107); Cholesterol 229 mg/dL (140-199); Estimated Glomerular Filt Rate > 60 mL/min (>60); Globulin 2.9 g/dL (1.7-4.1); Glucose 82 mg/dL (80-110); HDL Cholesterol 79 mg/dL (40-60); HEMOLYSIS < 15 (0-50); LDL Cholesterol Calculated 127 mg/dL (<100); Sodium 137 mmol/L (137-145); Total Protein 7.2 g/dL (6.3-8.2); Triglycerides 115 mg/dL (35-150)
[2024-03-14 13:59] LABS: TSH w/ Reflex to FT4 1.61 uIU/mL (0.47-4.68)
== END ==
PROVIDERS: PCP Family Medicine; Referring Provider Family Medicine; Visit Provider Family Medicine
DX: K21.9 Gastro-esophageal reflux disease without esophagitis (principal); E78.00 Pure hypercholesterolemia, unspecified
CPT/HCPCS: 36415; 80053; 80061; 84443; 85025

== ENCOUNTER → 2024-08-08 10:22 | Outpatient (CLI) | payer MEDICARE, SELFPAY ==
--- NOTE | 2024-08-08 10:23 | DI.RAD.S_ITS ---
PROCEDURE: XR HIP W PEL IF DONE MAHIN MIN 4V INDICATIONS: Right sided low back and hip pain TECHNIQUE: AP pelvis with lateral view(s) of the bilateral hip(s). COMPARISON: None. FINDINGS: Bones: No fractures or dislocations. Pelvic ring appears intact. Mild symmetric femoroacetabular joint degeneration. No suspicious bony lesions. Soft tissues: The visualized bowel gas pattern is normal. No suspicious soft tissue calcifications. IMPRESSION: No acute bony abnormality. Mild symmetric hip joint degeneration. Dictated by: Lenka Moreno M.D. on 08/10/2024 at 7:22 Approved by: Lenka Moreno M.D. on 08/10/2024 at 7:22
--- NOTE | 2024-08-08 10:23 | DI.RAD.S_ITS ---
PROCEDURE: XR LUMBAR SPINE MIN 4V INDICATIONS: Right sided low back and hip pain TECHNIQUE: 5 views of the lumbar spine were acquired, including bilateral oblique views. COMPARISON: None. FINDINGS: Bones: 5 nonrib-bearing vertebrae are present. There is sacralization of L5 and rudimentary disc formation. Mild bilateral lower lumbar facet arthropathy. There may be trace anterolisthesis L5-S1. No vertebral body compression fractures. No suspicious bony lesions. Soft tissues: Overlying bowel gas pattern is normal. No suspicious soft tissue calcifications. Oblique images: No pars defects. IMPRESSION: Probable trace L5-S1 anterolisthesis. Dictated by: Lenka Moreno M.D. on 08/10/2024 at 7:19 Approved by: Lenka Moreno M.D. on 08/10/2024 at 7:21
== END ==
PROVIDERS: PCP Family Medicine; Referring Provider Physician Assistant; Visit Provider Physician Assistant
DX: M47.816 Spondylosis without myelopathy or radiculopathy, lumbar region (principal); M43.27 Fusion of spine, lumbosacral region; M16.0 Bilateral primary osteoarthritis of hip; M25.551 Pain in right hip; M54.50 Low back pain, unspecified
CPT/HCPCS: 72110; 73522

== ENCOUNTER → 2024-11-13 12:06 | Outpatient (CLI) | payer MEDICARE, SELFPAY ==
--- NOTE | 2024-11-13 12:07 | DI.RAD.S_ITS ---
PROCEDURE: XR DEXA AXIAL SKELETON INDICATIONS: osteopenia COMPARISON: [facility], [facility], XR DEXA AXIAL SKELETON, 02/08/2023, 10:05. FINDINGS: Lumbar Spine: L1-L4. Bone mineral density 0.629 g/cm2, T score -3.8. There is significant interval decrease in bone mineral density. Left Femoral Neck: Bone mineral density 0.557 g/cm2, T score -2.6. Left Hip: Bone mineral density 0.578 g/cm2, T score -3.0, no significant interval change. Fracture Risk Calculation (when applicable): 10-year fracture risk of a major osteoporotic fracture 20 percent and of a hip fracture 5.0 percent. (T score greater or equal to -1.0 to: NORMAL) (T score from -1.1 to -2.4: OSTEOPENIA) (T score less than or equal to -2.5: OSTEOPOROSIS) IMPRESSION: Osteoporosis. Significant interval decrease in bone mineral density at the lumbar spine. Follow-up guidelines as follows: Osteoporosis: Consider a repeat DEXA and Vertebral Fracture Assessment (VFA) exam in 2 years or sooner if medically necessary, to reassess this patient's status. Osteopenia: Consider a repeat DEXA in 2-3 years to reassess this patient's status, or if there is a new clinical indication. Normal: Consider a repeat DEXA in 5 years or sooner, or if there is a new clinical indication. All treatment decisions require clinical judgment and consideration of individual patient factors, including patient preferences, comorbidities, previous drug use, risk factors not captured in the FRAX model (e.g., frailty, falls, vitamin D deficiency, increased bone turnover, interval significant decline in bone density ) and possible under- or over-estimation of fracture risk by FRAX. In addition, the NOF Guide recommends that FDA-approved medical therapies be considered in postmenopausal women and men age >= 50 years with a: * Hip or vertebral (clinical or morphometric) fracture * T-score of <=-2.5 at the spine or hip * Ten-year fracture probability by FRAX of >= 3% for hip fracture or >=20% for major osteoporotic fracture. Dictated by: Tha Mota M.D. on 11/13/2024 at 17:14 Approved by: Tha Mota M.D. on 11/13/2024 at 17:17
== END ==
PROVIDERS: PCP Family Medicine; Referring Provider Family Medicine; Visit Provider Family Medicine
DX: M85.88 Other specified disorders of bone density and structure, other site (principal); M85.80 Other specified disorders of bone density and structure, unspecified site; M85.89 Other specified disorders of bone density and structure, multiple sites; M81.0 Age-related osteoporosis without current pathological fracture
CPT/HCPCS: 77080

== ENCOUNTER → 2025-03-13 09:02 | Outpatient (CLI) | payer MEDICARE, SELFPAY ==
[2025-03-13 10:03] LABS: Hematocrit 35.7 % (36-46); Hemoglobin 12.2 g/dL (12.0-16.0); Mean Corpuscular HGB Conc 34.2 % (30-36); Mean Corpuscular Hemoglobin 32.0 PG (26-34); Mean Corpuscular Volume 93.3 fL (80-100); Platelet Count 157 X10^3/uL (150-400)
[2025-03-13 10:19] LABS: Alanine Aminotransferase 15 IU/L (<35); Albumin 4.7 g/dL (3.5-5.0); Albumin Globulin Ratio 1.6 (1.0-2.8); Alkaline Phosphatase 45 U/L (38-126); Blood Urea Nitrogen 18 mg/dL (7-17); Calcium 9.6 mg/dL (8.4-10.2); Carbon Dioxide 26 mmol/L (22-32); Chloride 100 mmol/L (98-107); Estimated Glomerular Filt Rate > 60 mL/min (>60); Globulin 3.0 g/dL (1.7-4.1); Glucose 94 mg/dL (70-99); HEMOLYSIS < 15 (0-50); Potassium 4.7 mmol/L (3.4-5.1); Sodium 136 mmol/L (137-145); Total Protein 7.7 g/dL (6.3-8.2)
[2025-03-13 10:44] LABS: TSH w/ Reflex to FT4 1.29 uIU/mL (0.47-4.68)
== END ==
PROVIDERS: PCP Family Medicine; Referring Provider Nurse Practitioner Family; Visit Provider Nurse Practitioner Family
DX: K31.89 Other diseases of stomach and duodenum (principal); K59.00 Constipation, unspecified; R63.4 Abnormal weight loss
CPT/HCPCS: 36415; 80053; 83516; 84443; 85027; 86140